=== PATIENT | female | born 1940 | race Caucasian/White ===

== ENCOUNTER → 2016-05-05 | Outpatient (CLI) | payer MEDICARE, OTHER ==
[2016-05-05 13:21] LABS: ALT 57 U/L (9-52); AST 36 U/L (14-36); Alkaline Phosphatase 86 U/L (38-126); Anion Gap 12 mmol/L; Blood Urea Nitrogen 15 mg/dL (7-17); Calcium 10.7 mg/dL (8.4-10.2); Carbon Dioxide 27 mmol/L (22-30); Chloride 104 mmol/L (98-107); Glucose 111 mg/dL (74-99); Non-African American GFR(MDRD) 60 (>60 ml/min/1.73 sqM); Potassium 5.6 mmol/L (3.5-5.1); Sodium 143 mmol/L (137-145); Total Bilirubin 0.7 mg/dL (0.2-1.3); Total Protein 7.4 g/dL (6.3-8.2)
== END | disposition home or self-care (01) ==
LOC: LABWHC1 12:26
PROVIDERS: ATTEND Internal Medicine Endocrinology, Diabetes & Metabolism
DX: E21.0 Primary hyperparathyroidism (principal)
CPT/HCPCS: 36415; 80053; 82306; 83970

== ENCOUNTER → 2016-05-13 | Outpatient (CLI) | payer MEDICARE, OTHER ==
--- NOTE | 2016-05-13 16:43 | US ---
EXAMINATION TYPE: US thyroid st tissue head/neck DATE OF EXAM: 05/13/2016 4:09 PM COMPARISON: None. CLINICAL HISTORY: 75-year-old female primary hyperparathyroidism. TECHNIQUE: Multiple sonographic images of the thyroid gland were obtained. FINDINGS: Right Lobe: 3.2 x 1.6 x x 2.0cm Left Lobe: 3.1 x 1.2 x 1.4cm Isthmus Thickness: 0.4cm There is overall homogeneous glandular parenchyma. NODULES RIGHT: # of nodules measured on right: 1 1. 0.6 x 0.5 x 0.5 cm round spongiform nodule without internal vascularity within the mid pole. No other discrete nodules are seen. IMPRESSION: A single 6 mm spongiform nodule within the right midpole.
== END | disposition home or self-care (01) ==
LOC: RADUSMAIN 15:51
PROVIDERS: ATTEND Internal Medicine Endocrinology, Diabetes & Metabolism
DX: E04.1 Nontoxic single thyroid nodule (principal)
CPT/HCPCS: 76536

== ENCOUNTER → 2016-10-03 | Outpatient (CLI) | payer MEDICARE, OTHER ==
--- NOTE | 2016-10-03 11:22 | MM ---
Reason for exam: clinical finding. Last mammogram was performed 1 year and 1 month ago. History: Patient is postmenopausal. Took hormonal contraceptives for 2 years beginning at age 22. Took estrogen for 4 years beginning at age 46. Physical Findings: Nurse did not find any significant physical abnormalities on exam. MG 3D Diag Mammo W/Cad NADEEM Bilateral CC and MLO view(s) were taken. Prior study comparison: August 19, 2015, bilateral MG 3d screening mammo w/cad. July 14, 2014, bilateral MG screening mammo w CAD. July 04, 2013, bilateral digital screening mammo w/CAD. The breast tissue is heterogeneously dense. This may lower the sensitivity of mammography. Finding: There are typically benign round, diffuse, grouped calcifications in both breasts, greater in the right breast. Asymmetric breast tissue left subareolar region. There is no discrete abnormality. These results were verbally communicated with the patient and result sheet given to the patient on 10/03/16. ASSESSMENT: Benign, BI-RAD 2 RECOMMENDATION: Routine screening mammogram of both breasts in 1 year. Manage patient on a clinical basis.
--- NOTE | 2016-10-03 11:23 | USB ---
Reason for exam: additional evaluation requested from abnormal screening. History: Patient is postmenopausal. Took hormonal contraceptives for 2 years beginning at age 22. Took estrogen for 4 years beginning at age 46. US Breast LT Left breast ultrasound includes all four quadrants, the retroareolar region and axilla. Finding demonstrate a 1.0 x 0.2cm duct estasia at the nipple, and a 0.5 x 0.3 x 0.6cm too small to characterize lesion at 2 o'clock. These results were verbally communicated with the patient and result sheet given to the patient on 10/03/16. ASSESSMENT: Benign, BI-RAD 2 RECOMMENDATION: Routine screening mammogram of both breasts in 1 year.
== END | disposition home or self-care (01) ==
LOC: RADMAMWWP 08:38
PROVIDERS: ATTEND Family Medicine
DX: N64.4 Mastodynia (principal); N63 Unspecified lump in breast
CPT/HCPCS: 76641; G0204; G0279

== ENCOUNTER 2016-12-11 13:41 | Emergency (ER) | payer MEDICARE, OTHER ==
[2016-12-11] MEDS ORDERED: ONDANSETRON 4 MG/2 ML VIAL IVP STA (14:12)
[2016-12-11] MEDS ORDERED: SODIUM CHLORIDE 0.9% 500 ML IV STA (14:12)
[2016-12-11] MEDS ORDERED: RX INFO: IV CONTRAST WAS GIVEN 1 EACH MISC MISCELLANE PRN (14:12)
[2016-12-11] MEDS ORDERED: SODIUM CHLORIDE 0.9% 1,000 ML IV STA (14:12)
[2016-12-11] MEDS ORDERED: HYDROmorphone 1 MG/ML 1 ML SYRINGE IVP STA (14:13)
--- NOTE | 2016-12-11 14:23 | ED ---
General Adult HPI - General Chief complaint: Abdominal Pain Stated complaint: Abd Pain Time Seen by Provider: 12/11/16 13:49 Source: patient, RN notes reviewed, old records reviewed Mode of arrival: ambulatory Limitations: no limitations - History of Present Illness Initial comments: This is a 76-year-old female EL with up dollop pain. Patient has periumbilical abdominal pain. Patient has no prior history of abdominal surgery colonoscopies have been normal. No recent change in medications no fevers mild nausea no vomiting, occasional loose stools no diarrhea. No blood in her stools. - Related Data Home Medications Medication Instructions Recorded Confirmed Metoprolol Tartrate [Metoprolol 50 mg PO BID 11/28/14 12/11/16 Tartrate] Atorvastatin [Lipitor] 40 mg PO MOWEFR 04/21/15 12/11/16 metFORMIN HCL [Glucophage] 500 mg PO AC-LUNCH 04/21/15 12/11/16 Lisinopril [Zestril] 10 mg PO HS 12/11/16 12/11/16 Allergies Allergy/AdvReac Type Severity Reaction Status Date / Time morphine Allergy Itching Verified 12/11/16 14:11 Penicillins Allergy Itching Verified 12/11/16 14:11 Sulfa (Sulfonamide Allergy Itching Verified 12/11/16 14:11 Antibiotics) Review of Systems ROS Statement: Those systems with pertinent positive or pertinent negative responses have been documented in the HPI. ROS Other: All systems not noted in ROS Statement are negative. Past Medical History Past Medical History: Hyperlipidemia, Hypertension Additional Past Medical History / Comment(s): 11/28/14 Pt direct admit for GI bleed and anemia. Other HX: Pt had stress test/echo on 11/26/14 and just turned in her 24 hr DCG today-she is experiencing tiredness and exertional dyspnea, rectal bleed, internal and external hemorrhoids, benign polyps and diverticulosis, constipation, herniated disc in back, stomach ulcer, arrhythmia where heart beats fast and skips, History of Any Multi-Drug Resistant Organisms: None Reported Past Surgical History: Bladder Surgery, Hysterectomy, Tonsillectomy Additional Past Surgical History / Comment(s): colonoscopies and polypectomies- last colonoscopy 2012 was normal, R leg cosmetic vein stripping, bladder repair , bilateral carpal tunnel release, D&C, partial hysterectomy, R heel spur removed. Additional Past Anesthesia/Blood Transfusion Reaction / Comment(s): Pt states she wakes up shakey after surgery. Pt recieved blood after childbirth and had no reaction. Past Psychological History: No Psychological Hx Reported Smoking Status: Never smoker Past Alcohol Use History: Rare Past Drug Use History: None Reported - Past Family History Father Family Medical History: Diabetes Mellitus Mother Family Medical History: No Reported History Additional Family Medical History / Comment(s): Mother is alive and 95 yrs old. Brother(s) Family Medical History: Cancer Additional Family Medical History / Comment(s): Brother had esophageal and colon cancer-is doing well. General Exam Limitations: no limitations General appearance: alert, in no apparent distress Head exam: Present: atraumatic, normocephalic, normal inspection Eye exam: Present: normal appearance, PERRL, EOMI. Absent: scleral icterus, conjunctival injection, periorbital swelling ENT exam: Present: normal exam, mucous membranes moist Neck exam: Present: normal inspection. Absent: tenderness, meningismus, lymphadenopathy Respiratory exam: Present: normal lung sounds bilaterally. Absent: respiratory distress, wheezes, rales, rhonchi, stridor Cardiovascular Exam: Present: regular rate, normal rhythm, normal heart sounds. Absent: systolic murmur, diastolic murmur, rubs, gallop, clicks GI/Abdominal exam: Present: soft, normal bowel sounds. Absent: distended, tenderness, guarding, rebound, rigid Extremities exam: Present: normal inspection, full ROM, normal capillary refill. Absent: tenderness, pedal edema, joint swelling, calf tenderness Back exam: Present: normal inspection Neurological exam: Present: alert, oriented X3, CN II-XII intact Psychiatric exam: Present: normal affect, normal mood Skin exam: Present: warm, dry, intact, normal color. Absent: rash Course Vital Signs 12/11/16 13:46 Temperature 97.9 F Pulse Rate 73 Respiratory 20 Rate Blood Pressure 136/96 O2 Sat by Pulse 97 Oximetry - Reevaluation(s) Reevaluation #1: 12/11/16 16:12 Abdominal pain is resolved Medical Decision Making - Medical Decision Making 76 female ear for evaluation. At this time patient presents for evaluation of nonspecific abdominal pain. Lab work is normal CT abdomen and pelvis is negative. Patient can be discharged home - Lab Data Result diagrams: 12/11/16 14:35 08/13/17 14:35 Lab Results 12/11/16 12/11/16 12/11/16 Range/Units 14:35 14:35 14:35 WBC 6.9 (3.8-10.6) k/uL RBC 4.43 (3.80-5.40) m/uL Hgb 13.1 (11.4-16.0) gm/dL Hct 39.6 (34.0-46.0) % MCV 89.5 (80.0-100.0) fL MCH 29.5 (25.0-35.0) pg MCHC 33.0 (31.0-37.0) g/dL RDW 13.5 (11.5-15.5) % Plt Count 246 (150-450) k/uL Neutrophils % 67 % Lymphocytes % 22 % Monocytes % 5 % Eosinophils % 3 % Basophils % 1 % Neutrophils # 4.7 (1.3-7.7) k/uL Lymphocytes # 1.5 (1.0-4.8) k/uL Monocytes # 0.4 (0-1.0) k/uL Eosinophils # 0.2 (0-0.7) k/uL Basophils # 0.0 (0-0.2) k/uL Sodium 140 (137-145) mmol/L Potassium 4.5 (3.5-5.1) mmol/L Chloride 105 (98-107) mmol/L Carbon Dioxide 23 (22-30) mmol/L Anion Gap 12 mmol/L BUN 16 (7-17) mg/dL Creatinine 0.90 (0.52-1.04) mg/dL Est GFR (MDRD) Af Amer >60 (>60 ml/min/1.73 sqM) Est GFR (MDRD) Non-Af >60 (>60 ml/min/1.73 sqM) Glucose 101 H (74-99) mg/dL Plasma Lactic Acid Tanner (0.7-2.0) mmol/L Calcium 9.8 (8.4-10.2) mg/dL Total Bilirubin 0.9 (0.2-1.3) mg/dL AST 72 H (14-36) U/L ALT 62 H (9-52) U/L Alkaline Phosphatase 120 (38-126) U/L Total Creatine Kinase 209 H (30-135) U/L CK-MB (CK-2) 2.0 (0.0-2.4) ng/mL CK-MB (CK-2) Rel Index 1.0 Troponin I <0.012 (0.000-0.034) ng/mL Total Protein 7.0 (6.3-8.2) g/dL Albumin 4.4 (3.5-5.0) g/dL Amylase 40 (30-110) U/L Lipase 270 (23-300) U/L 12/11/16 Range/Units 14:35 WBC (3.8-10.6) k/uL RBC (3.80-5.40) m/uL Hgb (11.4-16.0) gm/dL Hct (34.0-46.0) % MCV (80.0-100.0) fL MCH (25.0-35.0) pg MCHC (31.0-37.0) g/dL RDW (11.5-15.5) % Plt Count (150-450) k/uL Neutrophils % % Lymphocytes % % Monocytes % % Eosinophils % % Basophils % % Neutrophils # (1.3-7.7) k/uL Lymphocytes # (1.0-4.8) k/uL Monocytes # (0-1.0) k/uL Eosinophils # (0-0.7) k/uL Basophils # (0-0.2) k/uL Sodium (137-145) mmol/L Potassium (3.5-5.1) mmol/L Chloride (98-107) mmol/L Carbon Dioxide (22-30) mmol/L Anion Gap mmol/L BUN (7-17) mg/dL Creatinine (0.52-1.04) mg/dL Est GFR (MDRD) Af Amer (>60 ml/min/1.73 sqM) Est GFR (MDRD) Non-Af (>60 ml/min/1.73 sqM) Glucose (74-99) mg/dL Plasma Lactic Acid Tanner 1.4 (0.7-2.0) mmol/L Calcium (8.4-10.2) mg/dL Total Bilirubin (0.2-1.3) mg/dL AST (14-36) U/L ALT (9-52) U/L Alkaline Phosphatase (38-126) U/L Total Creatine Kinase (30-135) U/L CK-MB (CK-2) (0.0-2.4) ng/mL CK-MB (CK-2) Rel Index Troponin I (0.000-0.034) ng/mL Total Protein (6.3-8.2) g/dL Albumin (3.5-5.0) g/dL Amylase (30-110) U/L Lipase (23-300) U/L - Radiology Data Radiology results: report reviewed (CT pelvis is negative), image reviewed Disposition Clinical Impression: Abdominal pain Disposition: HOME SELF-CARE Condition: Good Instructions: Abdominal Pain (ED) Referrals: Nayeli Easley III, MD [Primary Care Provider] - 1-2 days
[2016-12-11 14:52] LABS: Basophils % (A) 1 %; CH 28.7; CHCM 32.3; Eosinophils # (A) 0.2 k/uL (0-0.7); Eosinophils % (A) 3 %; HCT 39.6 % (34.0-46.0); HDW 2.87; HGB 13.1 gm/dL (11.4-16.0); Luc # (Auto) 0.12; Luc % (Auto) 2; Lymphocytes # (A) 1.5 k/uL (1.0-4.8); Lymphocytes % (A) 22 %; MCH 29.5 pg (25.0-35.0); MCV 89.5 fL (80.0-100.0); Mean Platelet Volume 7.9; Monocytes # (A) 0.4 k/uL (0-1.0); Monocytes % (A) 5 %; Neutrophils # (A) 4.7 k/uL (1.3-7.7); Neutrophils % (A) 67 %; RBC 4.43 m/uL (3.80-5.40); RDW 13.5 % (11.5-15.5); WBC 6.9 k/uL (3.8-10.6); WBC (Perox) 7.09
[2016-12-11 15:04] LABS: ALT 62 U/L (9-52); AST 72 U/L (14-36); Alkaline Phosphatase 120 U/L (38-126); Amylase 40 U/L (30-110); Anion Gap 12 mmol/L; Blood Urea Nitrogen 16 mg/dL (7-17); Calcium 9.8 mg/dL (8.4-10.2); Carbon Dioxide 23 mmol/L (22-30); Chloride 105 mmol/L (98-107); Glucose 101 mg/dL (74-99); Non-African American GFR(MDRD) >60 (>60 ml/min/1.73 sqM); Potassium 4.5 mmol/L (3.5-5.1); Sodium 140 mmol/L (137-145); Total Bilirubin 0.9 mg/dL (0.2-1.3)
[2016-12-11 15:05] LABS: Creatine Kinase 209 U/L (30-135)
[2016-12-11 15:18] LABS: Troponin I <0.012 ng/mL (0.000-0.034)
--- NOTE | 2016-12-11 15:50 | CT ---
EXAMINATION TYPE: CT abdomen pelvis w con DATE OF EXAM: 12/11/2016 COMPARISON: NONE HISTORY: Upper abdominal pain. CT DLP: 1301.60 mGycm Automated exposure control for dose reduction was used. TECHNIQUE: Helical acquisition of images was performed from the lung bases through the pelvis. CONTRAST: Performed without Oral Contrast and with IV Contrast, patient injected with 100 mL of Omnipaque 350. FINDINGS: LUNG BASES: No significant abnormality is appreciated. There is a moderate-sized hiatal hernia which is unchanged. LIVER/GB: Cholelithiasis is noted. The liver is unremarkable. PANCREAS: No significant abnormality is seen. SPLEEN: No significant abnormality is seen. ADRENALS: No significant abnormality is seen. KIDNEYS: A 9 mm nonobstructing calculus is again noted in the left renal inferior pole calyx. FREE AIR: No free air is visualized. RETROPERITONEAL ADENOPATHY: None visualized REPRODUCTIVE ORGANS: No significant abnormality is seen URINARY BLADDER: No significant abnormality is seen. PELVIC ADENOPATHY: None visualized. OSSEOUS STRUCTURES: There is grade 1 anterolisthesis of L3 on L4 and L4-L5. BOWEL: Diverticulosis is noted in the descending and sigmoid colon. There is no evidence of acute di verticulitis. OTHER: None IMPRESSION: 1. A LARGE LIKELY SLIDING-TYPE HIATAL HERNIA IS AGAIN NOTED. 2. NONOBSTRUCTING LEFT-SIDED NEPHROLITHIASIS. 3. CHOLELITHIASIS.
[2016-12-11 16:56] VITALS: BP 132/78; PULSE 70; RESP 16; TEMP 98.2
== END 2016-12-11 16:56 | disposition home or self-care (01) ==
LOC: EC 13:41
DX: R10.33 Periumbilical pain (principal); R11.0 Nausea; E78.5 Hyperlipidemia, unspecified; I10 Essential (primary) hypertension; Z79.84 Long term (current) use of oral hypoglycemic drugs; Z79.899 Other long term (current) drug therapy; Z88.0 Allergy status to penicillin; Z88.2 Allergy status to sulfonamides; Z88.5 Allergy status to narcotic agent; Z80.0 Family history of malignant neoplasm of digestive organs
CPT/HCPCS: 36415; 80053; 82150; 82550; 82553; 83605; 83690; 84484; 85025; 74177; 99284; 96374; 96375; 96361; J2405; J1170; Q9967

== ENCOUNTER → 2017-08-23 | Outpatient (CLI) | payer MEDICARE, OTHER ==
[2017-08-23 12:55] LABS: Anisocytosis Slight; Basophils # (A) 0.1 k/uL (0-0.2); Basophils % (A) 1 %; Eosinophils # (A) 0.2 k/uL (0-0.7); Eosinophils % (A) 3 %; HCT 36.6 % (34.0-46.0); HGB 10.7 gm/dL (11.4-16.0); Hypochromasia Marked; Lymphocytes # (A) 1.7 k/uL (1.0-4.8); Lymphocytes % (A) 33 %; MCH 22.4 pg (25.0-35.0); MCHC 29.3 g/dL (31.0-37.0); MCV 76.3 fL (80.0-100.0); Mean Platelet Volume 8.6; Microcytosis Slight; Monocytes # (A) 0.4 k/uL (0-1.0); Monocytes % (A) 7 %; Neutrophils # (A) 2.8 k/uL (1.3-7.7); Neutrophils % (A) 54 %; Platelet Count 296 k/uL (150-450); RDW 16.2 % (11.5-15.5); WBC 5.2 k/uL (3.8-10.6)
[2017-08-23 13:14] LABS: Albumin 4.5 g/dL (3.5-5.0); Potassium 4.8 mmol/L (3.5-5.1); Total Bilirubin 0.4 mg/dL (0.2-1.3); Total Protein 7.2 g/dL (6.3-8.2)
== END | disposition home or self-care (01) ==
LOC: LABWHC1 11:40
PROVIDERS: ATTEND Nurse Practitioner Adult Health
DX: I10 Essential (primary) hypertension (principal); E21.5 Disorder of parathyroid gland, unspecified; E78.5 Hyperlipidemia, unspecified; R73.9 Hyperglycemia, unspecified
CPT/HCPCS: 36415; 80053; 80061; 83970; 85025

== ENCOUNTER → 2017-09-28 | Outpatient (CLI) | payer MEDICARE, OTHER ==
--- NOTE | 2017-09-29 08:02 | US ---
EXAMINATION TYPE: US thyroid st tissue head/neck DATE OF EXAM: 09/28/2017 COMPARISON: Prior thyroid ultrasound May 13, 2016 CLINICAL HISTORY: E21.3 Hyperparathyroid,R53.83 Fatigue. Fatigue, hyperparathyroidism, left parathyro idectomy 2017 GLAND SIZE: Right Lobe: 2.8 x 1.3 x 1.7 cm Left Lobe: 3.5 x 1.4 x 1.5 cm Isthmus Thickness: 0.4 cm NODULES RIGHT: # of nodules measured on right: 1 1. 0.8 X 0.5 x 0.7 cm mixed nodule at the mid pole with well-defined margins; . This nodule is wid er than tall and shows intranodular vascularity. Prior size: 0.6 x 0.5 x 0.5 cm LEFT: # of nodules measured on left: 0 ISTHMUS: # of nodules measured in the isthmus: 0 Bilateral neck scanned, no evidence of lymphadenopathy. Small size heterogeneous thyroid is redemonstrated. There is stable 8 mm mixed nodule right thyroid l obe. There are scattered tinier subcentimeter nodules redemonstrated bilaterally. IMPRESSION: Small size heterogeneous thyroid without significant interval change. No new greater than 1 cm nodule s identified.
== END | disposition home or self-care (01) ==
LOC: RADUSWWP 16:19
PROVIDERS: ATTEND Family Medicine
DX: E04.2 Nontoxic multinodular goiter (principal); E21.3 Hyperparathyroidism, unspecified; R53.83 Other fatigue
CPT/HCPCS: 76536

== ENCOUNTER → 2017-11-06 | Outpatient (CLI) | payer MEDICARE, OTHER ==
--- NOTE | 2017-11-07 14:28 | MM ---
Reason for exam: screening (asymptomatic). Last mammogram was performed 1 year and 1 month ago. History: Patient is postmenopausal. Took hormonal contraceptives for 2 years beginning at age 22. Took estrogen for 4 years beginning at age 46. Physical Findings: A clinical breast exam by your physician is recommended on an annual basis and results should be correlated with mammographic findings. MG 3D Screening Mammo W/Cad Bilateral CC and MLO view(s) were taken. Prior study comparison: October 03, 2016, bilateral MG 3d diag mammo w/cad NADEEM. August 19, 2015, bilateral MG 3d screening mammo w/cad. The breast tissue is heterogeneously dense. This may lower the sensitivity of mammography. Finding: There are typically benign round, diffuse/scattered and grouped calcifications in both breasts, greater in the right breast. Grouped indeterminate calcifications in the right upper outer quadrant middle depth. New finding and increase in number of calcifications since October 03, 2016. ASSESSMENT: Incomplete: need additional imaging evaluation, BI-RAD 0 RECOMMENDATION: Special view mammogram of the right breast. [facility] will attempt to contact patient to return for supplemental views.
== END | disposition home or self-care (01) ==
LOC: RADMAMWWP 15:30
PROVIDERS: ATTEND Family Medicine
DX: Z12.31 Encounter for screening mammogram for malignant neoplasm of breast (principal)
CPT/HCPCS: 77063; 77067

== ENCOUNTER → 2017-11-09 | Outpatient (CLI) | payer MEDICARE, OTHER ==
--- NOTE | 2017-11-09 14:24 | MM ---
Reason for exam: screening (asymptomatic). Last mammogram was performed less than 1 month ago. History: Patient is postmenopausal. Took hormonal contraceptives for 2 years beginning at age 22. Took estrogen for 4 years beginning at age 46. Physical Findings: A clinical breast exam by your physician is recommended on an annual basis and results should be correlated with mammographic findings. MG 3D Work Up W/Cad RT CC with magnification, LM with magnification, and LM view(s) were taken of the right breast. Prior study comparison: November 06, 2017, bilateral MG 3d screening mammo w/cad. October 03, 2016, bilateral MG 3d diag mammo w/cad NADEEM. Finding: There are intermediate concern, suspicious coarse heterogeneous calcifications in the upper outer quadrant, middle posterior position of the right breast. These results were verbally communicated with the patient and result sheet given to the patient on 11/09/17. ASSESSMENT: Suspicious, BI-RAD 4 RECOMMENDATION: Stereotactic core biopsy of right breast. Called Dr. Martinez with mammographic findings and has scheduled an appointment for the patient for 12/06/17 at 3:[address] Garcia. Biopsy scheduled for 11/16/17 at 10:00. PRELIMINARY REPORT CALLED AND FAXED TO DR. GARCIA ON 11/09/17. [facility]
== END | disposition home or self-care (01) ==
LOC: RADMAMWWP 06:55
PROVIDERS: ATTEND Family Medicine
DX: R92.8 Other abnormal and inconclusive findings on diagnostic imaging of breast (principal)
CPT/HCPCS: 77065; G0279; 77061

== ENCOUNTER → 2017-11-16 | Day surgery (SDC) | payer MEDICARE, OTHER ==
[2017-11-16 09:22] VITALS: PULSE 60; RESP 16; TEMP 97.9; BMI 30.2
[2017-11-16 11:39] VITALS: BP 127/76
--- NOTE | 2017-11-16 14:03 | MM ---
EXAMINATION TYPE: MG stereo VAD BX RT DATE OF EXAM: 11/16/2017 COMPARISON: 11/09/2017 CLINICAL HISTORY: 3 mm group of upper outer quadrant of the right breast calcifications and mid to posterior depth for which stereotactic guided biopsy was recommended. TECHNIQUE: Stereotactic guided core biopsy of right breast. FINDINGS: The procedure of stereotactic guided core biopsy was explained to the patient. Benefits, alternatives, and risks were discussed. An informed consent was then obtained. Preprocedural timeout was performed. The shortness pathway for biopsy was chosen. Shortness pathway was lateral to medial approach. . 10 cc of lidocaine was utilized to anesthetize the skin surface and subcutaneous tissues. The needle was advanced to the appropriate depth and prefire images were obtained. 10 cc of lidocaine with epinephrine was utilized to anesthetize the site of biopsy after fire. Subsequently a vacuum assisted biopsy gun was used to obtain 7 core samples. The patient tolerated the procedure well without any immediate complication. The patient was kept in the radiology department for short stay after the procedure and then discharged home in stable condition. Targeted calcifications are identified in specimen mammogram. Post biopsy mammogram shows the biopsy marker to appear in satisfactory position relative to the targeted area of concern on the preprocedure images. IMPRESSION: SUCCESSFUL, UNCOMPLICATED STEREOTACTIC GUIDED CORE BIOPSY OF A 3 MM GROUP OF CALCIFICATIONS IN THE UPPER OUTER QUADRANT OF THE RIGHT BREAST AT MID TO POSTERIOR DEPTH, FULL PATHOLOGY RESULTS TO FOLLOW. Pathology Results: Benign BREAST, RIGHT, STEREOTACTIC CORE BIOPSY: Fibrocystic changes including fibroadenomatoid hyperplasia with hyalinization and calcifications. Recommendation Follow up mammogram of the right breast in 6 months. ANGELIA
== END | disposition home or self-care (01) ==
LOC: RADMAMWWP 08:54
PROVIDERS: ATTEND Surgery
DX: N60.11 Diffuse cystic mastopathy of right breast (principal); N62 Hypertrophy of breast; Z88.0 Allergy status to penicillin; Z88.2 Allergy status to sulfonamides; Z88.5 Allergy status to narcotic agent
CPT/HCPCS: 88305; 19081; A4648; J2001

== ENCOUNTER → 2017-12-25 | Outpatient (CLI) | payer MEDICARE, OTHER ==
[2017-12-25 16:16] LABS: Anisocytosis Slight; Basophils % (A) 1 %; Eosinophils # (A) 0.2 k/uL (0-0.7); Eosinophils % (A) 4 %; HCT 40.6 % (34.0-46.0); HGB 11.9 gm/dL (11.4-16.0); Hypochromasia Marked; Lymphocytes # (A) 1.6 k/uL (1.0-4.8); Lymphocytes % (A) 30 %; MCH 25.2 pg (25.0-35.0); MCHC 29.4 g/dL (31.0-37.0); MCV 85.8 fL (80.0-100.0); Mean Platelet Volume 7.9; Monocytes # (A) 0.3 k/uL (0-1.0); Monocytes % (A) 6 %; Neutrophils # (A) 3.1 k/uL (1.3-7.7); Neutrophils % (A) 58 %; Platelet Count 234 k/uL (150-450); RBC 4.74 m/uL (3.80-5.40); RDW 19.1 % (11.5-15.5); WBC 5.4 k/uL (3.8-10.6)
[2017-12-25 16:38] LABS: Calcium 9.8 mg/dL (8.4-10.2); Potassium 4.7 mmol/L (3.5-5.1)
[2017-12-26 02:33] LABS: Parathyroid Hormone Intact 85.3 pg/mL (14.0-72.0)
--- NOTE | 2017-12-26 05:26 | US ---
EXAMINATION TYPE: US kidneys/renal and bladder DATE OF EXAM: 12/25/2017 COMPARISON: CT 12/11/2016 CLINICAL HISTORY: 77-year-old female N20.0 Calculus of kidney,R10.9 Lt Flank Pain. TECHNIQUE: Multiple sonographic images of the kidneys and bladder are obtained. FINDINGS: EXAM MEASUREMENTS: Right Kidney: 9.9 x 3.9 x 4.0 cm Left Kidney: 10.7 x 4.2 x 4.0 cm Right Kidney: No hydronephrosis. 2 simple cortical cysts are present, one in the midpole and one in t he lower pole, largest measuring 1.1 x 1.1 x 1.2 cm Left Kidney: No hydronephrosis. Echogenic shadowing focus visualized lower pole measuring 1.8 cm Bladder: Incomplete distention limits its evaluation. Bilateral Jets seen: No IMPRESSION: 1. No hydronephrosis. 2. A 1.8 cm nonobstructive left lower pole renal calculus.
[2017-12-26 05:46] LABS: Hemoglobin A1C 5.5 % (4.0-6.0)
== END | disposition home or self-care (01) ==
LOC: RADUSWWP 15:24
PROVIDERS: ATTEND Family Medicine
DX: N20.0 Calculus of kidney (principal); N28.1 Cyst of kidney, acquired; E21.3 Hyperparathyroidism, unspecified; I10 Essential (primary) hypertension; R73.01 Impaired fasting glucose; D50.9 Iron deficiency anemia, unspecified
CPT/HCPCS: 36415; 76770; 80048; 82607; 83036; 83970; 85025

== ENCOUNTER → 2018-06-08 | Outpatient (CLI) | payer MEDICARE, OTHER ==
--- NOTE | 2018-06-08 11:48 | MM ---
Reason for exam: follow-up at short interval from prior study. Last mammogram was performed 7 months ago. History: Patient is postmenopausal. Benign MG stereo VAD BX RT of the right breast, November 16, 2017. Took hormonal contraceptives for 2 years beginning at age 22. Took estrogen for 4 years beginning at age 46. Physical Findings: Nurse did not find any significant physical abnormalities on exam. MG 3D Diag Mammo W/Cad RT CC and MLO view(s) were taken of the right breast. Prior study comparison: November 09, 2017, right breast MG 3d work up w/cad RT. November 06, 2017, bilateral MG 3d screening mammo w/cad. The breast tissue is heterogeneously dense. This may lower the sensitivity of mammography. Benign appearing bilateral calcifications. No suspicious abnormality. Left upper outer quadrant biopsy marker noted. No new suspicious calcifications near the biopsy site. These results were verbally communicated with the patient and result sheet given to the patient on 06/08/18. ASSESSMENT: Benign, BI-RAD 2 RECOMMENDATION: Return to routine screening mammogram schedule for both breasts. Back on schedule.
== END | disposition home or self-care (01) ==
LOC: RADMAMWWP 10:44
PROVIDERS: ATTEND Surgery
DX: R92.8 Other abnormal and inconclusive findings on diagnostic imaging of breast (principal)
CPT/HCPCS: 77065; G0279; 77061

== ENCOUNTER → 2018-11-14 | Outpatient (CLI) | payer MEDICARE, OTHER ==
--- NOTE | 2018-11-15 14:55 | MM ---
Reason for exam: screening (asymptomatic). Last mammogram was performed 5 months ago. History: Patient is postmenopausal. Benign MG stereo VAD BX RT of the right breast, November 16, 2017. Took hormonal contraceptives for 2 years beginning at age 22. Took estrogen for 4 years beginning at age 46. Physical Findings: A clinical breast exam by your physician is recommended on an annual basis and results should be correlated with mammographic findings. MG 3D Screening Mammo W/Cad Bilateral CC and MLO view(s) were taken. Prior study comparison: June 08, 2018, right breast MG 3d diag mammo w/cad RT. November 09, 2017, right breast MG 3d work up w/cad RT. The breast tissue is heterogeneously dense. This may lower the sensitivity of mammography. Previous mammotome biopsy in the right breast. ASSESSMENT: Benign, BI-RAD 2 RECOMMENDATION: Routine screening mammogram of both breasts in 1 year. Manage patient on a clinical basis.
== END | disposition home or self-care (01) ==
LOC: RADMAMWWP 15:28
PROVIDERS: ATTEND Family Medicine
DX: Z12.31 Encounter for screening mammogram for malignant neoplasm of breast (principal)
CPT/HCPCS: 77063; 77067

== ENCOUNTER → 2018-12-26 | Outpatient (CLI) | payer MEDICARE, OTHER ==
[2018-12-26 10:53] LABS: Basophils # (A) 0.1 k/uL (0-0.2); Basophils % (A) 1 %; Eosinophils # (A) 0.2 k/uL (0-0.7); Eosinophils % (A) 4 %; HCT 41.9 % (34.0-46.0); HGB 13.3 gm/dL (11.4-16.0); Lymphocytes # (A) 1.4 k/uL (1.0-4.8); Lymphocytes % (A) 28 %; MCH 29.2 pg (25.0-35.0); MCHC 31.8 g/dL (31.0-37.0); MCV 91.7 fL (80.0-100.0); Mean Platelet Volume 8.7; Monocytes # (A) 0.4 k/uL (0-1.0); Monocytes % (A) 7 %; Neutrophils # (A) 2.9 k/uL (1.3-7.7); Neutrophils % (A) 59 %; Platelet Count 244 k/uL (150-450); RBC 4.57 m/uL (3.80-5.40); RDW 15.3 % (11.5-15.5)
[2018-12-26 16:01] LABS: African American GFR (CKD) 63.4 (60.0-200.0); Albumin 4.7 g/dL (3.80-4.90); Albumin/Globulin Ratio 2.76 (1.60-3.17); Anion Gap 7.1 mmol/L (4.00-12.00); Calcium 9.9 mg/dL (8.7-10.3); Carbon Dioxide 28.9 mmol/L (21.6-31.8); Chol/HDL Ratio 2.31; Globulin 1.7 g/dL (1.6-3.3); LDL Cholesterol,Calculated 75.4 mg/dL (0.0-131.0); Potassium 4.8 mmol/L (3.5-5.5); Total Bilirubin 0.6 mg/dL (0.2-1.2); Total Protein 6.4 g/dL (6.2-8.2); VLDL Calculation 25.6 mg/dL (5.00-40.00)
[2018-12-26 17:41] LABS: Hemoglobin A1C 5.6 % (4.0-6.0)
== END | disposition home or self-care (01) ==
LOC: LABWHC1 09:57
PROVIDERS: ATTEND Family Medicine
DX: E21.3 Hyperparathyroidism, unspecified (principal); R73.01 Impaired fasting glucose; I10 Essential (primary) hypertension; E78.5 Hyperlipidemia, unspecified; R53.83 Other fatigue
CPT/HCPCS: 36415; 80053; 80061; 82607; 83036; 83970; 84443; 85025

== ENCOUNTER → 2019-01-03 | Outpatient (CLI) | payer MEDICARE, OTHER ==
--- NOTE | 2019-01-03 14:02 | BD ---
EXAMINATION TYPE: Axial Bone Density DATE OF EXAM: 01/03/2019 COMPARISON: 11.05.2001 CLINICAL HISTORY: 78 YR OLD FEMALE....ICD-10 CODE: Z78.0 POST MENOPAUSAL Height: 61 Weight: 161 FRAX RISK QUESTIONS: Secondary Osteoporosis: YES 2. Hyperthyroidism: YES RISK FACTORS HISTORY OF: History of Wrist Fracture: LT WRIST A CHILD Postmenopausal woman: YES AT AGE 45-46 Take estrogen and/or progesterone medications: TOOK FOR 6 MOS ONLY IN PAST Hyperparathyroidism: PARATHYROID REMOVAL, YES, MEDICATIONS: Additional Medications: BP MEDS, REFLUX MEDS PRN, STATIN FOR CHOLESTEROL, Additional History: HYPERTENSION, HYPERPARATHYROIDISM, CHOLESTEROL, EXAM MEASUREMENTS: Bone mineral densitometry was performed using the [employer]. Bone mineral density as measured about the Lumbar spine is: ----- L1-L4(G/cm2): 1.329 T Score Values are as follows: ----- L1: 1.9 ----- L2: 1.1 ----- L3: 1.6 ----- L4: 0.4 ----- L1-L4: 1.2 Bone mineral density has: Decreased -6.6% since study of: 11.05.2001 Bone mineral density about the R hip (g/cm2): 0.869 Bone mineral density about the L hip (g/cm2): 0.810 T Score values are as follows: -----R Neck: -2.4 -----L Neck: -2.2 -----R Total: -1.1 -----L Total: -1.6 Bone mineral density has: Decreased -18.9% since study of: 11.05.2001 FRAX%s: THERE IS A 15.8% CHANCE FOR A MAJOR OSTEOPOROTIC FX AND A 4.8% FOR HIP FX....PROBABILITY FO R FX IN 10 YRS TIME IMPRESSION: Osteopenia (T Score between -2.5 and -1). Values to approach osteoporosis with regards to the right f emoral neck. There is slightly increased risk of fracture and the patient may be considered for treatment. Re-Screen 2-5 years. NOTE: T-SCORE=SD OF THE YOUNG ADULT MEAN.
== END | disposition home or self-care (01) ==
LOC: RADBDWWP 13:13
PROVIDERS: ATTEND Family Medicine
DX: M85.88 Other specified disorders of bone density and structure, other site (principal); Z78.0 Asymptomatic menopausal state
CPT/HCPCS: 77080

== ENCOUNTER → 2019-12-23 | Outpatient (CLI) | payer MEDICARE, OTHER ==
--- NOTE | 2019-12-24 11:29 | MM ---
Reason for exam: screening (asymptomatic). Last mammogram was performed 1 year and 1 month ago. History: Patient is postmenopausal. Benign MG stereo VAD BX RT of the right breast, November 16, 2017. Took hormonal contraceptives for 2 years beginning at age 22. Took estrogen for 4 years beginning at age 46. Physical Findings: A clinical breast exam by your physician is recommended on an annual basis and results should be correlated with mammographic findings. MG 3D Screening Mammo W/Cad Bilateral CC and MLO view(s) were taken. Prior study comparison: November 14, 2018, bilateral MG 3d screening mammo w/cad. June 08, 2018, right breast MG 3d diag mammo w/cad RT. The breast tissue is heterogeneously dense. This may lower the sensitivity of mammography. There are benign appearing round calcifications bilaterally. Previous mammotome biopsy in the right breast. There is chronic nodularity in the right breast inferiorly. There is no discrete abnormality. ASSESSMENT: Benign, BI-RAD 2 RECOMMENDATION: Routine screening mammogram of both breasts in 1 year.
== END | disposition home or self-care (01) ==
LOC: RADMAMWWP 13:45
PROVIDERS: ATTEND Family Medicine
DX: Z12.31 Encounter for screening mammogram for malignant neoplasm of breast (principal)
CPT/HCPCS: 77063; 77067

== ENCOUNTER → 2020-11-18 | Outpatient (CLI) | payer MEDICARE, OTHER ==
[2020-11-19 03:43] LABS: African American GFR (CKD) 56.1 (60.0-200.0); Albumin 4.8 g/dL (3.80-4.90); Albumin/Globulin Ratio 1.92 (1.60-3.17); Anion Gap 14.2 mmol/L (4.00-12.00); BUN/Creat Ratio 21.82 Ratio (12.00-20.00); Carbon Dioxide 23.8 mmol/L (21.6-31.8); Globulin 2.5 g/dL (1.6-3.3); Non-African American GFR(CKD) 48.4 (60.0-200.0); Total Bilirubin 0.5 mg/dL (0.3-1.2); Total Protein 7.3 g/dL (6.2-8.2)
== END | disposition home or self-care (01) ==
LOC: LABWHC1 10:33
PROVIDERS: ATTEND Internal Medicine Endocrinology, Diabetes & Metabolism
DX: E21.0 Primary hyperparathyroidism (principal)
CPT/HCPCS: 36415; 80053; 82306; 83970

== ENCOUNTER → 2021-03-03 | Outpatient (CLI) | payer MEDICARE, OTHER ==
--- NOTE | 2021-03-05 14:41 | MM ---
Reason for exam: screening (asymptomatic). Last mammogram was performed 1 year and 2 months ago. History: Patient is postmenopausal. Benign MG stereo VAD BX RT of the right breast, November 16, 2017. Took hormonal contraceptives for 2 years beginning at age 22. Took estrogen for 4 years beginning at age 46. Physical Findings: A clinical breast exam by your physician is recommended on an annual basis and results should be correlated with mammographic findings. MG 3D Screening Mammo W/Cad Bilateral CC and MLO view(s) were taken. Prior study comparison: December 23, 2019, bilateral MG 3d screening mammo w/cad. November 14, 2018, bilateral MG 3d screening mammo w/cad. The breast tissue is heterogeneously dense. This may lower the sensitivity of mammography. Previous mammotome biopsy in the right breast. Stable subareolar focal asymmetry on both sides. No significant changes when compared with prior studies. ASSESSMENT: Benign, BI-RAD 2 RECOMMENDATION: Routine screening mammogram of both breasts in 1 year.
== END | disposition home or self-care (01) ==
LOC: RADMAMWWP 16:28
PROVIDERS: ATTEND Family Medicine
DX: Z12.31 Encounter for screening mammogram for malignant neoplasm of breast (principal); Z78.0 Asymptomatic menopausal state
CPT/HCPCS: 77063; 77067

== ENCOUNTER → 2021-03-26 | Outpatient (CLI) | payer MEDICARE, OTHER ==
--- NOTE | 2021-03-26 11:19 | US ---
EXAMINATION TYPE: US gallbladder DATE OF EXAM: 03/26/2021 COMPARISON: CT abdomen and pelvis December 11, 2016 CLINICAL HISTORY: R10.13 Epigastric pain; R68.81 satiety; K44.9 hernia; R10.11. EXAM MEASUREMENTS: Liver Length: 15.2 cm Gallbladder Wall: 0.3 cm CBD: 0.4 cm Right Kidney: 9.2x5.2x4.4 cm Pancreas: wnl Liver: wnl Gallbladder: Multiple small stones as well as 0.9cm Evidence for sonographic Green's sign: No CBD: wnl Right Kidney: Inf cyst 1.3x1.2x1.2cm Visualized pancreas unremarkable. Visualized liver appears within normal limits. Gallbladder shows a few mobile small shadowing stones. No pericholecystic fluid or abnormal gallbladder wall thickening. Simple appearing 1.2 cm thin-walled cyst exophytically from the right kidney incidentally seen corres stephen to CT axial image 34. No right-sided hydronephrosis. IMPRESSION: Small Gallstones redemonstrated without secondary ultrasound evidence for acute cholecyst itis
== END | disposition home or self-care (01) ==
LOC: RADUSWWP 10:40
PROVIDERS: ATTEND Family Medicine
DX: K80.20 Calculus of gallbladder without cholecystitis without obstruction (principal)
CPT/HCPCS: 76705

== ENCOUNTER → 2021-07-16 | Outpatient (CLI) | payer MEDICARE, OTHER ==
[2021-07-16 18:16] LABS: Basophils # (A) 0.06 X 10*3/uL (0.00-0.10); Basophils % (A) 1.1 %; Eosinophils # (A) 0.23 X 10*3/uL (0.04-0.35); Eosinophils % (A) 4.2 %; HCT 38.9 % (37.2-46.3); Immature Grans, Automated 0.2 %; Lymphocytes # (A) 1.46 X 10*3/uL (0.90-5.00); Lymphocytes % (A) 26.7 %; MCHC 28.3 g/dL (32.0-37.0); MCV 81.2 fL (80.0-97.0); Mean Platelet Volume 12.1 fL (9.5-12.2); Monocytes # (A) 0.44 X 10*3/uL (0.20-1.00); Monocytes % (A) 8.1 %; NRBC Per 100 WBC 0 /100 WBCS (0.0-0.0); Neutrophils # (A) 3.26 X 10*3/uL (1.80-7.70); Neutrophils % (A) 59.7 %; Platelet Count 292 X 10*3/uL (140-440); RBC 4.79 X 10*6/uL (4.10-5.20); RDW 15.7 % (11.5-14.5); WBC 5.46 X 10*3/uL (4.50-10.00)
[2021-07-16 20:21] LABS: ALT 39 U/L (8-44); AST 35 U/L (13-35); African American GFR (CKD) 61.7 (60.0-200.0); Albumin 4.6 g/dL (3.8-4.9); Albumin/Globulin Ratio 1.59 (1.60-3.17); Alkaline Phosphatase 92 U/L (41-126); BUN/Creat Ratio 13.27 Ratio (12.00-20.00); Blood Urea Nitrogen 13.4 mg/dL (9.0-27.0); Carbon Dioxide 21.1 mmol/L (20.0-27.5); Chloride 104 mmol/L (96-109); Chol/HDL Ratio 2.58 Ratio; Globulin 2.9 g/dL (1.6-3.3); Glucose 120 mg/dL (70-110); LDL Cholesterol,Calculated 77.2 mg/dL (0.0-131.0); Non-African American GFR(CKD) 53.3 (60.0-200.0); Sodium 139 mmol/L (135-145); Total Protein 7.4 g/dL (6.2-8.2)
== END | disposition home or self-care (01) ==
LOC: LABWHC1 11:58
PROVIDERS: ATTEND Internal Medicine Cardiovascular Disease
DX: I10 Essential (primary) hypertension (principal); E78.5 Hyperlipidemia, unspecified
CPT/HCPCS: 36415; 80053; 80061; 85025

== ENCOUNTER 2021-12-21 19:54 | Observation (INO) | payer MEDICARE, OTHER ==
[2021-12-21 20:36] LABS: Anisocytosis Slight; Basophils % (A) 1 %; Eosinophils # (A) 0.2 k/uL (0-0.7); Eosinophils % (A) 4 %; HCT 41.2 % (34.0-46.0); HGB 13.1 gm/dL (11.4-16.0); Hypochromasia Slight; Lymphocytes # (A) 1.5 k/uL (1.0-4.8); Lymphocytes % (A) 28 %; MCH 27.7 pg (25.0-35.0); MCHC 31.9 g/dL (31.0-37.0); MCV 86.7 fL (80.0-100.0); Monocytes # (A) 0.4 k/uL (0-1.0); Monocytes % (A) 8 %; Neutrophils # (A) 3.1 k/uL (1.3-7.7); Neutrophils % (A) 58 %; Platelet Count 236 k/uL (150-450); RBC 4.75 m/uL (3.80-5.40); RDW 16.9 % (11.5-15.5); WBC 5.3 k/uL (3.8-10.6)
[2021-12-21 20:45] LABS: Albumin 4.4 g/dL (3.5-5.0); Calcium 9.8 mg/dL (8.4-10.2); INR 0.9 (<1.2); Magnesium 1.5 mg/dL (1.6-2.3); Partial Thromboplastin Time 22.7 sec (22.0-30.0); Potassium 4.1 mmol/L (3.5-5.1); Total Bilirubin 0.5 mg/dL (0.2-1.3); Total Protein 7.3 g/dL (6.3-8.2)
[2021-12-21] MEDS ORDERED: Magnesium Replacement Protocol 1 EACH MISC MISCELLANE PRN (20:53)
[2021-12-21] MEDS ORDERED: ASPIRIN 81 MG PO STA (21:00)
[2021-12-21] MEDS ORDERED: NITROGLYCERIN SL TABS 0.4 MG TAB SUBLINGUAL PRN (21:01)
--- NOTE | 2021-12-21 21:07 | ED ---
Chest Pain HPI - General Chief Complaint: Chest Pain Stated Complaint: chest pain Time Seen by Provider: 12/21/21 20:52 Source: patient, RN notes reviewed Mode of arrival: ambulatory Limitations: no limitations - History of Present Illness Initial Comments: Pleasant 81-year-old female presents with left-sided chest pain that started about noon. Initially was intermittent, fleeting, however at 5 PM became constant. Unrelated to exertion. No shortness of breath. No diaphoresis. No nausea. Unrelated to movement. Patient states that she had a stress test last year that showed she had some blockage. This was a Cardiolite stress test. 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 Past medical, surgical, social, and family history reviewed. MD Complaint: chest pain Onset/Timin -: hour(s) Onset: during rest Pain Location: left chest Pain Radiation: none Severity: moderate Quality: aching, dull Consistency: constant (since 5PM) Improves With: nothing Worsens With: nothing Treatments Prior to Arrival: none - Related Data On Oral Contraceptives: No Home Medications Medication Instructions Recorded Confirmed Metoprolol Tartrate 50 mg PO BID 11/28/14 11/16/17 Atorvastatin [Lipitor] 40 mg PO MOWEFR 04/21/15 11/16/17 metFORMIN HCL [Glucophage] 500 mg PO AC-LUNCH 04/21/15 11/16/17 lisinopriL [Zestril] 10 mg PO HS 12/11/16 11/16/17 Cyanocobalamin (Vitamin B-12) 1,000 mcg PO DAILY 11/13/17 11/16/17 [Vitamin B-12] Ferrous Sulfate [Feosol] 325 mg PO DAILY 11/13/17 11/16/17 Allergies Allergy/AdvReac Type Severity Reaction Status Date / Time morphine Allergy Itching Verified 12/21/21 19:58 Penicillins Allergy Itching Verified 12/21/21 19:58 Sulfa (Sulfonamide Allergy Itching Verified 12/21/21 19:58 Antibiotics) Review of Systems ROS Statement: Those systems with pertinent positive or pertinent negative responses have been documented in the HPI. ROS Other: All systems not noted in ROS Statement are negative. EKG Findings - EKG Comments: EKG Findings:: EKG shows sinus rhythm with a rate of 81. QRS duration is widened at 140 ms. Other intervals are normal. Consistent with intraventricular conduction delay. No definitive acute changes otherwise. Left axis deviation. No comparison study Past Medical History Past Medical History: Hyperlipidemia, Hypertension Additional Past Medical History / Comment(s): 11/28/14 Pt direct admit for GI bleed and anemia. Other HX: Pt had stress test/echo on 11/26/14 and just turned in her 24 hr DCG today-she is experiencing tiredness and exertional dyspnea, rectal bleed, internal and external hemorrhoids, benign polyps and diverticulosis, constipation, herniated disc in back, stomach ulcer, arrhythmia where heart beats fast and skips, History of Any Multi-Drug Resistant Organisms: None Reported Past Surgical History: Bladder Surgery, Hysterectomy, Tonsillectomy Additional Past Surgical History / Comment(s): colonoscopies and polypectomies- last colonoscopy 2012 was normal, R leg cosmetic vein stripping, bladder repair, bilateral carpal tunnel release, D&C, partial hysterectomy, R heel spur removed. cataract right eye surgery Additional Past Anesthesia/Blood Transfusion Reaction / Comment(s): Pt states she wakes up shakey after surgery. Pt recieved blood after childbirth and had no reaction. Past Psychological History: No Psychological Hx Reported Smoking Status: Never smoker Past Alcohol Use History: Rare Past Drug Use History: None Reported - Past Family History Father Family Medical History: Diabetes Mellitus Mother Family Medical History: No Reported History Additional Family Medical History / Comment(s): Mother is alive and 95 yrs old. Brother(s) Family Medical History: Cancer Additional Family Medical History / Comment(s): Brother had esophageal and colon cancer-is doing well. General Exam Limitations: no limitations General appearance: alert, in no apparent distress Head exam: Present: atraumatic, normocephalic, normal inspection Eye exam: Present: normal appearance, PERRL, EOMI. Absent: scleral icterus, conjunctival injection, periorbital swelling ENT exam: Present: normal exam, mucous membranes moist. Absent: TM's normal bilaterally, normal external ear exam Neck exam: Present: normal inspection. Absent: tenderness, meningismus, full ROM, lymphadenopathy Respiratory exam: Present: normal lung sounds bilaterally. Absent: respiratory distress, wheezes, rales, rhonchi, stridor, chest wall tenderness, accessory muscle use Cardiovascular Exam: Present: regular rate, normal rhythm, normal heart sounds. Absent: systolic murmur, diastolic murmur, rubs, gallop, clicks GI/Abdominal exam: Present: soft, normal bowel sounds. Absent: distended, tenderness, guarding, rebound, rigid, diminished bowel sounds, hyperactive bowel sounds, hypoactive bowel sounds, organomegaly, mass Extremities exam: Present: normal inspection, full ROM, normal capillary refill. Absent: tenderness, pedal edema, joint swelling, calf tenderness Back exam: Present: normal inspection Neurological exam: Present: alert, oriented X3, CN II-XII intact Psychiatric exam: Present: normal affect, normal mood Skin exam: Present: warm, dry, intact, normal color. Absent: rash Course Vital Signs 12/21/21 19:56 Temperature 98.1 F Pulse Rate 90 Respiratory 18 Rate Blood Pressure 145/86 O2 Sat by Pulse 99 Oximetry - Reevaluation(s) Reevaluation #1: 12/21/21 21:43 Medical record is reviewed Symptoms are improved here in the emergency department Patient is informed of results and questions answered Patient in no distress - Consultations Consultation #1: This discussed with the hospitalist physician from [facility]. Case also discussed with Dr. Mao as we had no comparison study for the EKG. Chest [facility] Patient presents with nonreproducible chest pain, left chest, EKG shows intraventricular conduction delay with no comparison study. Initial troponin is negative. Patient states chest pain became more constant at 5 PM. Aspirin given. We'll try nitroglycerin to relieve the pain. Patient will be admitted for chest pain rule out. Patient met at 4 chest pain rule out. Discussed with hospitalist and cardiology. EKG shows left bundle-branch block with no comparison study. Patient states she was told previously that she had the blockage in her cardiolo gist, Dr. Majano Professor Of Oceanography Dr. Gee Disposition Clinical Impression: Chest pain Disposition: ADMITTED IP TO THIS HOSP Condition: Stable Referrals: Philip Alexander [Primary Care Provider] - 1-2 days Time of Disposition: 21:12 Decision to Admit Reason: Admit from EC Decision Time: 21:12
--- NOTE | 2021-12-21 21:36 | XR ---
EXAMINATION TYPE: XR chest 2V DATE OF EXAM: 12/21/2021 9:17 PM COMPARISON: CT abdomen pelvis 12/11/2016. TECHNIQUE: XR chest 2V Frontal and lateral views of the chest. CLINICAL INDICATION:Female, 81 years old with history of Chest Pain; FINDINGS: Lungs/Pleura: There is no evidence of pleural effusion, focal consolidation, or pneumothorax. Pulmonary vascularity: Unremarkable. Heart/mediastinum: Cardiomediastinal silhouette is enlarged and stable. Large hiatal hernia present. Musculoskeletal: No acute osseous pathology. IMPRESSION: 1. No acute cardiopulmonary disease/process. 2. Large hiatal hernia.
[2021-12-21] MEDS ORDERED: NALOXONE 0.4 MG/ML 1 ML VIAL IV PRN (21:45)
[2021-12-21] MEDS ORDERED: ACETAMINOPHEN TAB 325 MG TAB PO PRN (21:45)
[2021-12-21] MEDS ORDERED: DEXTROSE 50% SYRINGE 50 ML IVP PRN ×2 (21:48)
[2021-12-21] MEDS: MAGNESIUM SULFATE-D5W PMX 1 GM in DEXTROSE/WATER 1 100ML.BAG IVPB SCH ×2 (22:06→22:57)
[2021-12-21] MEDS: PANTOPRAZOLE 40 MG/10 ML VIAL IV SCH (22:57)
[2021-12-22 04:56] LABS: Anisocytosis Slight; Basophils % (A) 0 %; Eosinophils # (A) 0.2 k/uL (0-0.7); Eosinophils % (A) 3 %; HCT 38.4 % (34.0-46.0); HGB 12.2 gm/dL (11.4-16.0); Hypochromasia Slight; Lymphocytes # (A) 1.4 k/uL (1.0-4.8); Lymphocytes % (A) 29 %; MCH 27.7 pg (25.0-35.0); MCHC 31.7 g/dL (31.0-37.0); MCV 87.3 fL (80.0-100.0); Mean Platelet Volume 8.9; Monocytes # (A) 0.4 k/uL (0-1.0); Monocytes % (A) 8 %; Neutrophils # (A) 2.7 k/uL (1.3-7.7); Neutrophils % (A) 58 %; Platelet Count 200 k/uL (150-450); RBC 4.39 m/uL (3.80-5.40); RDW 16.8 % (11.5-15.5); WBC 4.7 k/uL (3.8-10.6)
[2021-12-22 05:07] LABS: Calcium 9.2 mg/dL (8.4-10.2); Magnesium 2.1 mg/dL (1.6-2.3); Potassium 3.9 mmol/L (3.5-5.1); Total Bilirubin 0.4 mg/dL (0.2-1.3); Total Protein 6.6 g/dL (6.3-8.2)
--- NOTE | 2021-12-22 05:38 | P.HPIM ---
History of Present Illness H&P Date: 12/22/21 Chief Complaint: chest pain 81 year old female with hypertension , DM patient comes in due to left sided chest pain, described as LUQ left lower chest aching pain 7/10 in severity, non radiating, had couple short episodes earlier during the day , then got worse toward evening time, not related to activity, no associated SOB, dizziness, palpitations, nausea or vomiting, no profuse sweating. she is known to have hiatal hernia , and GERD, but this pain felt different to her. denies any associated coughing, fever, chills, SOB, changes in bowel or urinary habits. denies any GI bleeding she had a stress test done 5 years ago , unremarkable at the time denies any smoking, drinking , or illicit drugs denies any family history of CAD, denies any recent travel or hospital stay , denies any history of blood clots. patient drove herself to the hospital blood work unremarkable, Mg 1.5 , EKG showed LBBB. Review of Systems Pertinent positives as noted in HPI. All other systems were reviewed and are negative Past Medical History Past Medical History: Hyperlipidemia, Hypertension Additional Past Medical History / Comment(s): 11/28/14 Pt direct admit for GI bleed and anemia. Other HX: Pt had stress test/echo on 11/26/14 and just turned in her 24 hr DCG today-she is experiencing tiredness and exertional dyspnea, rectal bleed, internal and external hemorrhoids, benign polyps and diverticulosis, constipation, herniated disc in back, stomach ulcer, arrhythmia where heart beats fast and skips, History of Any Multi-Drug Resistant Organisms: None Reported Past Surgical History: Bladder Surgery, Hysterectomy, Tonsillectomy Additional Past Surgical History / Comment(s): colonoscopies and polypectomies- last colonoscopy 2012 was normal, R leg cosmetic vein stripping, bladder repair, bilateral carpal tunnel release, D&C, partial hysterectomy, R heel spur removed. cataract right eye surgery Additional Past Anesthesia/Blood Transfusion Reaction / Comment(s): Pt states she wakes up shakey after surgery. Pt recieved blood after childbirth and had no reaction. Past Psychological History: No Psychological Hx Reported Additional Psychological History / Comment(s): Pt resides with her significant other. She is independent. She uses no assistive devices. She has no home care. She drives. Smoking Status: Never smoker Past Alcohol Use History: Rare Past Drug Use History: None Reported - Past Family History Father Family Medical History: Diabetes Mellitus Mother Family Medical History: No Reported History Additional Family Medical History / Comment(s): Mother is alive and 95 yrs old. Brother(s) Family Medical History: Cancer Additional Family Medical History / Comment(s): Brother had esophageal and colon cancer-is doing well. Medications and Allergies Home Medications Medication Instructions Recorded Confirmed Type Metoprolol Tartrate 50 mg PO BID 11/28/14 12/21/21 History Atorvastatin [Lipitor] 40 mg PO MOWEFR@1700 04/21/15 12/21/21 History metFORMIN HCL [Glucophage] 500 mg PO PC-SUPPER 04/21/15 12/21/21 History lisinopriL [Zestril] 10 mg PO HS 12/11/16 12/21/21 History Ferrous Sulfate [Feosol] 325 mg PO PC-SUPPER 11/13/17 12/21/21 History Omeprazole 40 mg PO DAILY 12/21/21 12/21/21 History Allergies Allergy/AdvReac Type Severity Reaction Status Date / Time morphine Allergy Itching Verified 12/21/21 21:43 Penicillins Allergy Rash/Hives Verified 12/21/21 21:43 Sulfa (Sulfonamide Allergy Itching Verified 12/21/21 21:43 Antibiotics) Physical Exam Vitals: Vital Signs Temp Pulse Pulse Resp BP BP Pulse Ox 12/22/21 03:51 97.6 F 73 17 156/74 96 12/21/21 22:54 98.4 F 90 16 145/73 96 12/21/21 22:10 88 18 143/79 12/21/21 19:56 98.1 F 90 18 145/86 99 Intake and Output 12/21/21 12/21/21 12/22/21 14:59 22:59 06:59 Other: Weight 75.296 kg Constitutional: No acute distress, conversant, pleasant Eyes: Anicteric sclerae, moist conjunctiva, Pupils equal round reactive to light ENMT: NC/AT Oropharynx clear, no erythema, or exudates Neck: Supple, FROM, no masses, or JVD No carotid bruits No thyromegaly Lungs: Clear to auscultation Clear to percussion Normal respiratory effort, no accessory muscle use Cardiovascular: Heart regular in rate and rhythm, No murmurs, gallops, or rubs No peripheral edema Abdominal: Soft Nontender, no guarding, rebound or rigidity Abdomen moving with respiration Normoactive bowel sounds No hepatomegaly, No splenomegaly No palpable mass No abdominal wall hernia noted Skin: Normal temperature, tone, texture, turgor No induration No subcutaneous nodules No rash, lesions No ulcers Extremities: No digital cyanosis No clubbing Pedal pulses intact and symmetrical Radial pulses intact and symmetrical No calf tenderness Psychiatric: Alert and oriented to person, place and time Appropriate affect fair judgement Neuro Muscles Strength 5/5 in all 4 extremities Sensation to light touch grossly present throughout Cranial nerves II-XII grossly intact No focal sensory deficits Lymphatics: no palpable cervical or supraclavicular , or inguinal lymph nodes Results CBC & Chem 7: 12/22/21 03:42 12/22/21 03:42 Labs: Abnormal Lab Results - Last 24 Hours (Table) 12/21/21 12/21/21 12/22/21 Range/Units 20:20 20:20 03:42 RDW 16.9 H (11.5-15.5) % Glucose 110 H (74-99) mg/dL Magnesium 1.5 L (1.6-2.3) mg/dL AST 47 H 42 H (14-36) U/L ALT 39 H 35 H (4-34) U/L 12/22/21 Range/Units 03:42 RDW 16.8 H (11.5-15.5) % Glucose (74-99) mg/dL Magnesium (1.6-2.3) mg/dL AST (14-36) U/L ALT (4-34) U/L Thrombosis Risk Factor Assmnt - Choose All That Apply Each Factor Represents 1 point: Obesity (BMI >25) Each Risk Factor Represents 3 Points: Age 75 years or older Thrombosis Risk Factor Assessment Total Risk Factor Score: 4 Thrombosis Risk Factor Assessment Level: Moderate Risk Assessment and Plan Assessment: atypical chest pain rule out ACS EKG no acute ST changes CXR no acute pathology trops negative 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
[2021-12-22 07:20] LABS: Glucose,Whole Blood 105 mg/dL (70-110)
[2021-12-22] MEDS ORDERED: AMINOPHYLLINE 500 MG/20 ML VIAL IV PRN (08:07)
[2021-12-22] MEDS ORDERED: CAFFEINE CITRATE 60 MG/3 ML VIAL IV PRN (08:07)
[2021-12-22] MEDS ORDERED: REGADENOSON 0.4 MG/5 ML SYRINGE IV PRN (08:07)
--- NOTE | 2021-12-22 08:07 | P.CRDCN ---
History of Present Illness Consult date: 12/22/21 History of present illness: History of Present Illness: The patient is a 81-year-old female with a known history of hypertension, hyperlipidemia and diabetes mellitus as well as a history of chronic left bundle branch block, hiatal hernia who presented with symptoms of chest discomfort. The discomfort was on and off yesterday, worse the evening, persistent and not associated with any other symptoms. She presented to the emergency room and subsequently admitted. She has no prior history of obstructive coronary artery disease, she has been followed in the past by Dr. Majano. She is not very active physically because of her knee discomfort but has no exertional chest discomfort, dyspnea on exertion, PND, orthopnea or peripheral edema. She denies any dizziness or palpitations, she has no syncope. In the emergency room her EKG showed left bundle branch block and she had normal troponin. She is pain- free at the time of my evaluation. Medications: Omeprazole 40 mg daily, metoprolol 50 mg twice a day, metformin, Zestril 10 mg daily, Lipitor 40 mg 4 times a week Review of Systems: Respiratory: No history of asthma, bronchitis or recent cough. GI: No nausea or vomiting . No history of peptic ulcer disease. No recent GI bleed, she has a history of hiatal hernia with reflux symptoms. : No hematuria or dysuria. Nervous System: No stroke or seizure. Physical Examination: 81-year-old female, alert and oriented no apparent distress,Blood pressure 137/80, Heart rate 79 Head: Normocephalic. Eyes: Sclerae nonicteric. Neck: Good carotid upstroke, no bruit, no jugular venous distention. Lungs: Clear to auscultation. Heart: Regular rate and rhythm, S1-S2, no S3, no rub. Systolic ejection murmur. Abdomen: Soft nontender, positive bowel sounds no organomegaly. Extremities: No edema, intact distal pulses. Labs: Potassium 3.9, BUN 15, creatinine 0.92, hemoglobin 12.2, troponin less than 0.012. Chest x-ray with no acute problem with large hiatal hernia EKG: Sinus mechanism with left bundle branch block Impression: 1. Chest discomfort of unclear etiology, probably noncardiac 2. Chronic left bundle branch block 3. History of hypertension 4. History of hyperlipidemia 5. History of hiatal hernia Plan: 1. Obtain an echocardiogram with Doppler 2. Obtain a nuclear scan 3. Continue home medications 4. Depending on the results of the testing further recommendations will be made 5. Thank you for this consult we will follow with you Past Medical History Past Medical History: Hyperlipidemia, Hypertension Additional Past Medical History / Comment(s): 11/28/14 Pt direct admit for GI bleed and anemia. Other HX: Pt had stress test/echo on 11/26/14 and just turned in her 24 hr DCG today-she is experiencing tiredness and exertional dyspnea, rectal bleed, internal and external hemorrhoids, benign polyps and diverticulosis, constipation, herniated disc in back, stomach ulcer, arrhythmia where heart beats fast and skips, History of Any Multi-Drug Resistant Organisms: None Reported Past Surgical History: Bladder Surgery, Hysterectomy, Tonsillectomy Additional Past Surgical History / Comment(s): colonoscopies and polypectomies- last colonoscopy 2012 was normal, R leg cosmetic vein stripping, bladder repair, bilateral carpal tunnel release, D&C, partial hysterectomy, R heel spur removed. cataract right eye surgery Additional Past Anesthesia/Blood Transfusion Reaction / Comment(s): Pt states she wakes up shakey after surgery. Pt recieved blood after childbirth and had no reaction. Past Psychological History: No Psychological Hx Reported Additional Psychological History / Comment(s): Pt resides with her significant other. She is independent. She uses no assistive devices. She has no home care. She drives. Smoking Status: Never smoker Past Alcohol Use History: Rare Past Drug Use History: None Reported - Past Family History Father Family Medical History: Diabetes Mellitus Mother Family Medical History: No Reported History Additional Family Medical History / Comment(s): Mother is alive and 95 yrs old. Brother(s) Family Medical History: Cancer Additional Family Medical History / Comment(s): Brother had esophageal and colon cancer-is doing well. Medications and Allergies Home Medications Medication Instructions Recorded Confirmed Type Metoprolol Tartrate 50 mg PO BID 11/28/14 12/21/21 History Atorvastatin [Lipitor] 40 mg PO MOWEFR@1700 04/21/15 12/21/21 History metFORMIN HCL [Glucophage] 500 mg PO PC-SUPPER 04/21/15 12/21/21 History lisinopriL [Zestril] 10 mg PO HS 12/11/16 12/21/21 History Ferrous Sulfate [Feosol] 325 mg PO PC-SUPPER 11/13/17 12/21/21 History Omeprazole 40 mg PO DAILY 12/21/21 12/21/21 History Allergies Allergy/AdvReac Type Severity Reaction Status Date / Time morphine Allergy Itching Verified 12/21/21 21:43 Penicillins Allergy Rash/Hives Verified 12/21/21 21:43 Sulfa (Sulfonamide Allergy Itching Verified 12/21/21 21:43 Antibiotics) Physical Exam Vitals: Vital Signs Temp Pulse Pulse Resp BP BP Pulse Ox 12/22/21 07:00 97.9 F 79 18 137/86 98 12/22/21 03:51 97.6 F 73 17 156/74 96 12/21/21 22:54 98.4 F 90 16 145/73 96 12/21/21 22:10 88 18 143/79 12/21/21 19:56 98.1 F 90 18 145/86 99 Intake and Output 12/21/21 12/22/21 12/22/21 22:59 06:59 14:59 Other: # Voids 2 Weight 75.296 kg Results 12/22/21 03:42 12/22/21 03:42 Cardiac Enzymes 12/21/21 12/21/21 12/22/21 Range/Units 20:20 20:20 00:23 AST 47 H (14-36) U/L Troponin I <0.012 <0.012 (0.000-0.034) ng/mL 12/22/21 12/22/21 Range/Units 03:42 03:42 AST 42 H (14-36) U/L Troponin I <0.012 (0.000-0.034) ng/mL Coagulation 12/21/21 Range/Units 20:20 PT 10.0 (9.0-12.0) sec APTT 22.7 (22.0-30.0) sec CBC 12/21/21 12/22/21 Range/Units 20:20 03:42 WBC 5.3 4.7 (3.8-10.6) k/uL RBC 4.75 4.39 (3.80-5.40) m/uL Hgb 13.1 12.2 (11.4-16.0) gm/dL Hct 41.2 38.4 (34.0-46.0) % Plt Count 236 200 (150-450) k/uL Comprehensive Metabolic Panel 12/21/21 12/22/21 Range/Units 20:20 03:42 Sodium 139 138 (137-145) mmol/L Potassium 4.1 3.9 (3.5-5.1) mmol/L Chloride 102 104 (98-107) mmol/L Carbon Dioxide 24 24 (22-30) mmol/L BUN 15 15 (7-17) mg/dL Creatinine 0.97 0.92 (0.52-1.04) mg/dL Glucose 110 H 95 (74-99) mg/dL Calcium 9.8 9.2 (8.4-10.2) mg/dL AST 47 H 42 H (14-36) U/L ALT 39 H 35 H (4-34) U/L Alkaline Phosphatase 97 90 (38-126) U/L Total Protein 7.3 6.6 (6.3-8.2) g/dL Albumin 4.4 4.0 (3.5-5.0) g/dL Current Medications Generic Name Dose Route Start Last Admin Trade Name Freq PRN Reason Stop Dose Admin Acetaminophen 650 mg 12/21/21 21:45 Acetaminophen Tab 325 Mg Tab PO Q6HR PRN Mild Pain or Fever > 100.5 Aspirin 81 mg 12/22/21 09:00 Aspirin 81 Mg PO DAILY [facility] Atorvastatin Calcium 40 mg 12/22/21 17:00 Atorvastatin 40 Mg Tab PO MOWEFR@1700 [facility] Dextrose/Water 25 ml 12/21/21 21:48 Dextrose 50% Syringe 50 Ml IVP PER PROTOCOL PRN Hypoglycemia Protocol Dextrose/Water 50 ml 12/21/21 21:48 Dextrose 50% Syringe 50 Ml IVP PER PROTOCOL PRN Hypoglycemia Protocol Ferrous Sulfate 325 mg 12/22/21 18:30 Ferrous Sulfate 325 Mg Tab PO PC-SUPPER [facility] Heparin Sodium (Porcine) 5,000 unit 12/22/21 09:00 Heparin Sodium,Porcine/Pf 5,000 Unit/0.5 Ml Syringe SQ Q12HR [facility] Insulin Aspart 0 unit 12/22/21 07:30 Insulin Aspart (Novolog) 100 Unit/Ml Vial SQ ACHS [facility] Protocol Lisinopril 10 mg 12/22/21 21:00 Lisinopril 10 Mg Tab PO HS [facility] Metoprolol Tartrate 50 mg 12/22/21 09:00 Metoprolol Tartrate 50 Mg Tab PO BID JESI Miscellaneous Information 1 each 12/21/21 20:53 Magnesium Replacement Protocol 1 Each Misc MISCELLANE DAILY PRN Per Protocol Protocol Naloxone HCl 0.2 mg 12/21/21 21:45 Naloxone 0.4 Mg/Ml 1 Ml Vial IV Q2M PRN Opioid Reversal Nitroglycerin 0.4 mg 12/21/21 21:01 Nitroglycerin Sl Tabs 0.4 Mg Tab SUBLINGUAL Q5M PRN Chest Pain Pantoprazole Sodium 40 mg 12/21/21 22:00 12/21/21 22:57 Pantoprazole 40 Mg/10 Ml Vial IV 40 mg DAILY JESI Administration Intake and Output 12/21/21 12/22/21 12/22/21 22:59 06:59 14:59 Other: # Voids 2 Weight 75.296 kg 12/22/21 03:42 12/22/21 03:42
[2021-12-22] MEDS ORDERED: HEPARIN SODIUM,PORCINE/PF 5,000 UNIT/0.5 ML SYRINGE SQ SCH (09:00)
[2021-12-22] MEDS ORDERED: METOPROLOL TARTRATE 50 MG TAB PO SCH (09:00)
[2021-12-22] MEDS ORDERED: ASPIRIN 81 MG PO SCH (09:00)
[2021-12-22] MEDS: INSULIN ASPART (NovoLOG) 100 UNIT/ML VIAL SQ SCH ×2 (11:01→15:45)
[2021-12-22] MEDS: PANTOPRAZOLE 40 MG/10 ML VIAL IV SCH (11:38)
--- NOTE | 2021-12-22 11:49 | NM ---
EXAMINATION TYPE: NM stress lexiscan cardiolite DATE OF EXAM: 12/22/2021 COMPARISON: NONE HISTORY: Chest pain TECHNIQUE: After the intravenous administration of 9.8 mCi Tc 99m Sestamibi - Cardiolite resting SPE CT images acquired 45 minutes post injection. At peak stress 25.3 mCi Tc 99m Sestamibi - Stress images obtained 65 minutes post injection The patient was stressed with 0.4mg Lexiscan. FINDINGS: There is a large fixed defect along the inferior wall greatest at the cardiac apex. This has some ext ension into the septal wall. No reversible stress defects on Spect images. There is hypokinesia of the inferior wall. Some minimal dyskinesia of the septal wall appears to be p resent. Ejection fraction remains normal and is calculated to be 60 %. IMPRESSION: 1. 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 2. Hypokinesia of the inferior wall with some mild dyskinesia of the septal wall. 3. No reversible stress-induced ischemic changes.
[2021-12-22 12:32] LABS: Glucose,Whole Blood 121 mg/dL (70-110)
--- NOTE | 2021-12-22 12:38 | CA ---
Transthoracic Echo Report Name: Marilee Stoll Age: 81 Gender: F : 1940 Exam Date: 12/22/2021 12:06 Exam Location: [facility] Ht (in): 61 Wt (lb): 166 Ordering Physician: Julia Mao MD ([id number]) Attending/Referring Phys: Development Representative Minda Zambrano RDCS Procedure CPT: Indications: CP Cardiac Hx: Technical Quality: Fair Contrast 1: Total Dose (mL): Contrast 2: Total Dose (mL): MEASUREMENTS (Male / Female) Normal Values 2D ECHO LV Diastolic Diameter PLAX 4.3 cm 4.2 - 5.9 / 3.9 - 5.3 cm LV Systolic Diameter PLAX 3.1 cm IVS Diastolic Thickness 1.3 cm 0.6 - 1.0 / 0.6 - 0.9 cm LVPW Diastolic Thickness 1.3 cm 0.6 - 1.0 / 0.6 - 0.9 cm LV Relative Wall Thickness 0.6 RV Internal Dim ED PLAX 2.4 cm LA Volume 22.5 cm??? 18 - 58 / 22 - 52 cm??? M-MODE Aortic Root Diameter MM 3.7 cm MV E Point Septal Separation 0.6 cm AV Cusp Separation MM 2.3 cm DOPPLER AV Peak Velocity 127.7 cm/s AV Peak Gradient 6.5 mmHg AI Peak Velocity 392.1 cm/s AI Peak Gradient 61.5 mmHg AI Pressure Half Time 552.5 ms MV Area PHT 16.4 cm??? MV Deceleration Time 59.8 ms TR Peak Velocity 243.4 cm/s TR Peak Gradient 23.7 mmHg Right Ventricular Systolic Press 27.9 mmHg FINDINGS Left Ventricle Left ventricular ejection fraction is estimated at 55-60%. Left ventricular cavity size normal. Mild concentric left ventricular hypertrophy. Right Ventricle Normal right ventricular size and function. Right ventricular systolic pressure within normal limits. Right Atrium Normal right atrial size. Left Atrium Normal left atrial size. No evidence for an atrial septal defect. Mitral Valve Mitral valve thickened.mild mitral regurgitation. Aortic Valve Trileaflet aortic valve. No aortic stenosis. Mild aortic regurgitation.aortic valve sclerosis. Tricuspid Valve Mild tricuspid regurgitation.structurally normal tricuspid valve. Pulmonic Valve Pulmonic valve not well visualized. Pericardium Normal pericardium. No pericardial effusion. Aorta Mild aortic dilatation at the level of the sinuses of valsalva 39 mm. CONCLUSIONS 1. Normal left size and systolic function 2. Mild mitral and tricuspid regurgitation Previewed by: Dr. Julia Mao MD (Electronically Signed) Final Date: 22 December 2021 12:37
[2021-12-22 15:17] VITALS: BP 138/78; PULSE 84; RESP 20; TEMP 97.6
--- NOTE | 2021-12-22 15:20 | P.DS ---
Providers Date of admission: 12/21/21 22:15 Expected date of discharge: 12/22/21 Attending physician: Aj Larson MD Consults: 12/21/21 21:45 Consult Physician Stat Consulting Provider: Julia Mao Consult Reason/Comments: chest pain Do you want consulting provider notified?: Already Contacted Primary care physician: Philip Alexander [facility] Course: Discharge Diagnosis: Chest pain, acute coronary event ruled out Hiatal hernia, patient to follow-up outpatient with general surgery for evaluation. Hypertension Hyperlipidemia Diabetes mellitus Hypomagnesemia, resolved Hospital Course: Patient is a very pleasant 81-year-old female with a past medical history of hypertension, hyperlipidemia, and diabetes mellitus. She presented to the emergency department on 12/22/21 with a chief complaint of chest pain. She underwent full evaluation in the emergency department. EKG revealing sinus rhythm at 81 bpm with T-wave inversion in leads I and AVL. Chest x-ray negative for acute cardiopulmonary process revealing a large hiatal hernia. CBC, CMP, and troponin all unremarkable. Magnesium low 1.5 and replaced. Patient was admitted under our services with consultation to cardiology. Troponins trended and all negative at less than 0.012. Hemoglobin A1c was completed resulting in 6.2%. Patient underwent evaluation by cardiology recommending a stress test. Echocardiogram completed revealing EF of 55-60% with mild mitral and tricuspid regurgitation. Lexiscan stress test is negative but revealed EF of 60% along with a large prior infarct inferior wall with some extension into the inferior septal wall and hypokinesia of the middle wall with some mild dyskinesia of the septal wall with no reversible stress-induced ischemic changes.Cardiology recommending no further testing recommendations at this time and recommend outpatient follow-up in our office in 1 week. Patient seen and examined at bedside. Vital signs reviewed and stable. General: Nontoxic, no distress and appears stated age. Derm: Skin warm and dry, normal coloration for ethnicity. Head: Atraumatic, normocephalic and symmetric. Eyes: EOMs intact, no lid lag, and anicteric sclera Mouth: no lip lesions, mucus membranes moist Cardiovascular: regular rate and rhythm with normal S1S2, no murmur, positive posterior tibial pulses bilaterally, and cap refill < 2 seconds. Lungs: Respirations even, regular, and unlabored on room air. Lungs CTA bilaterally, no rhonchi, no rales, no wheezing, and no accessory muscle usage. Abdominal: soft, nontender to palpation, no guarding, no appreciable organomegaly Ext: ROM intact. No gross muscle atrophy, no edema, no contractures Neuro: Speech clear, face symmetrical and CN II-XII grossly intact with no noted focal neuro deficits Psych: Alert and oriented to person, place, time, and situation. Appropriate and pleasant affect. A total of 38 minutes of time were spent preparing this complex discharge summary. Pt was discharged on 12/22/21 at 3:18 PM. Patient Condition at Discharge: Stable Plan - Discharge Summary New Discharge Prescriptions: No Action Metoprolol Tartrate 50 mg PO BID metFORMIN HCL [Glucophage] 500 mg PO PC-SUPPER Atorvastatin [Lipitor] 40 mg PO MOWEFR@1700 lisinopriL [Zestril] 10 mg PO HS Ferrous Sulfate [Feosol] 325 mg PO PC-SUPPER Omeprazole 40 mg PO DAILY Discharge Medication List Metoprolol Tartrate 50 mg PO BID 11/28/14 [History] Atorvastatin [Lipitor] 40 mg PO MOWEFR@1700 04/21/15 [History] metFORMIN HCL [Glucophage] 500 mg PO PC-SUPPER 04/21/15 [History] lisinopriL [Zestril] 10 mg PO HS 12/11/16 [History] Ferrous Sulfate [Feosol] 325 mg PO PC-SUPPER 11/13/17 [History] Omeprazole 40 mg PO DAILY 12/21/21 [History] Follow up Appointment(s)/Referral(s): Chuy Garcia MD [Medical Doctor] - 1 Week (Follow up on large hiatal hernia) Julia Mao MD [STAFF PHYSICIAN] - 12/31/21 4:15 pm Philip Alexander [Primary Care Provider] - 1-2 days Activity/Diet/Wound Care/Special Instructions: Activity: As tolerated. Take breaks as needed. Diet: Heart healthy and carb consistent diet. Avoid salts, or foods with hidden salts such as canned or boxed foods and frozen dinners. Extra salt makes your heart work harder and traps the fluid in your body for longer. Special Instructions: Take all of your medications as directed and remember to keep all of your doctor's appointments and follow-up as needed. Thank you for allowing us to participate in your care, it was truly a pleasure having you for our patient!!! Discharge Disposition: HOME SELF-CARE
[2021-12-22] MEDS ORDERED: ATORVASTATIN 40 MG TAB PO SCH (17:00)
[2021-12-22] MEDS ORDERED: FERROUS SULFATE 325 MG TAB PO SCH (18:30)
[2021-12-22] MEDS ORDERED: lisinopriL 10 MG TAB PO SCH (21:00)
== END 2021-12-22 15:56 | disposition home or self-care (01) ==
LOC: EC 19:54 → 6NMEDSUR 22:15
PROVIDERS: ADMIT Internal Medicine; ATTEND Internal Medicine
DX: R07.89 Other chest pain (principal); K44.9 Diaphragmatic hernia without obstruction or gangrene; E83.42 Hypomagnesemia; E11.9 Type 2 diabetes mellitus without complications; E78.5 Hyperlipidemia, unspecified; I11.9 Hypertensive heart disease without heart failure; I08.3 Combined rheumatic disorders of mitral, aortic and tricuspid valves; I44.7 Left bundle-branch block, unspecified; G24.9 Dystonia, unspecified; Z79.899 Other long term (current) drug therapy; Z79.84 Long term (current) use of oral hypoglycemic drugs; Z88.5 Allergy status to narcotic agent; Z88.0 Allergy status to penicillin; Z88.2 Allergy status to sulfonamides; Z90.710 Acquired absence of both cervix and uterus; Z83.3 Family history of diabetes mellitus; Z80.0 Family history of malignant neoplasm of digestive organs
CPT/HCPCS: 96365; 96366; 96372; 96375; 96376; 99285; 36415; 93005; 93017; 93306; 80053 ×2; 83690; 83735 ×2; 84484 ×2; 85025 ×2; 85610; 85730; 83036; 71046; 78452; G0378 ×2; A9500; J3475; J2785; C9113 ×2; J1644

== ENCOUNTER → 2022-04-15 | Outpatient (CLI) | payer MEDICARE, OTHER ==
--- NOTE | 2022-04-18 09:39 | MM ---
Reason for Exam: Screening (asymptomatic). Last mammogram was performed 1 year(s) and 1 month(s) ago. Patient History: Menarche at age 14. First Full-Term at age 21. Hysterectomy at age 42. Postmenopausal. Estrogen for 4 years from age 46 until age 50. Hormonal Contraceptives for 2 years from age 22 until age 24. 11/16/2017, Benign Core Biopsy on the right side. Risk Values: Carla 5 year model risk: 1.4%. NCI Lifetime model risk: 2.4%. Prior Study Comparison: 11/14/2018 Bilateral Screening Mammogram, [facility]. 12/23/2019 Bilateral Screening Mammogram, [facility]. 03/03/2021 Bilateral Screening Mammogram, [facility]. Tissue Density: The breast tissue is heterogeneously dense. This may lower the sensitivity of mammography. Findings: Analyzed By CAD. A mammotome biopsy clip right breast is redemonstrated. There are a few scattered tiny benign-appearing round calcifications redemonstrated throughout the bilateral breasts. There is no suspicious group of microcalcifications or new suspicious mass in either breast. Overall Assessment: Benign, BI-RAD 2 Management: Screening Mammogram of both breasts in 1 year. A clinical breast exam by your physician is recommended on an annual basis and results should be correlated with mammographic findings. Electronically signed and approved by: Oscar Sandhu M.D.
== END | disposition home or self-care (01) ==
LOC: RADMAMWWP 10:48
PROVIDERS: ATTEND Family Medicine
DX: Z12.31 Encounter for screening mammogram for malignant neoplasm of breast (principal); Z78.0 Asymptomatic menopausal state
CPT/HCPCS: 77063; 77067

== ENCOUNTER 2022-08-18 06:51 | Day surgery (SDC) | payer MEDICARE, OTHER ==
[2022-08-16 09:03] VITALS: BMI 30.2
[~2022-08-18 06:51] MED LIST: ALPRAZolam 0.25 MG TAB PO PRN; ALPRAZolam 0.5 MG TAB PO PRN; ASPIRIN 325 MG TAB PO STA; ATORVASTATIN 80 MG TAB PO STA; HEPARIN SODIUM,PORCINE 10,000 UNIT in SODIUM CHLORIDE 0.9% 1,000 ML IRRIGATION PRN; HEPARIN SODIUM,PORCINE 2,500 UNIT in SODIUM CHLORIDE 0.9% 250 ML IRRIGATION PRN; NITROGLYCERIN SL TABS 0.4 MG TAB SUBLINGUAL PRN; SODIUM CHLORIDE 0.9% 1,000 ML in EMPTY BAG 1 BAG IV SCH
[2022-08-18 07:18] VITALS: RESP 18; TEMP 98.2
[2022-08-18 07:19] LABS: Glucose,Whole Blood 110 mg/dL (70-110)
[2022-08-18] MEDS ORDERED: fentaNYL (PF) 50 MCG/ML 2 ML AMP ONE (09:15)
[2022-08-18] MEDS ORDERED: VERAPAMIL 2.5 MG/ML 2 ML AMP ONE (09:15)
[2022-08-18] MEDS ORDERED: fentaNYL (PF) 50 MCG/ML 2 ML AMP IV ONE (09:45)
[2022-08-18] MEDS ORDERED: LIDOCAINE 1% INJ 10MG/ML (5 ML VIAL-PF) SQ ONE (09:47)
[2022-08-18] MEDS ORDERED: MIDAZOLAM 2 MG/2 ML VIAL IV ONE (09:48)
[2022-08-18] MEDS ORDERED: VERAPAMIL SYRINGE (5 MG/10 ML) INTRAARTER ONE (09:49)
[2022-08-18] MEDS ORDERED: HEPARIN SODIUM 1,000 UN/ML (10ML VL) IV ONE (09:55)
[2022-08-18] MEDS ORDERED: IOPAMIDOL-370 100ML BTL INJ ONE (10:11)
[2022-08-18] MEDS ORDERED: RX INFO: IV CONTRAST WAS GIVEN 1 EACH MISC MISCELLANE PRN (10:18)
--- NOTE | 2022-08-18 10:24 | P.CARDCATH ---
Date of Procedure: 08/18/22 Description of Procedure: Cardiac Catheterization: The patient is a 81-year-old female with a history of hypertension, hyperlipidemia and diabetes mellitus who has been complaining of progressive dyspnea on exertion, limiting in addition to episodes of chest discomfort with physical activity. Recommendations were made regarding cardiac catheterization, the risks and the complications were discussed with the patient who is in full understanding and agreement. Procedure Description: Patient was brought to clinical laboratory aide in fasting semi-sedated state after receiving Fentanyl and Benadryl achieiving moderate conscious sedated state. Using Xylocaine Anesthesia and Seldinger technique, a 6-Nauruan sheath was introduced in the right radial artery . Subsequently, selective coronary angiography was performed using a 5-Nauruan 3.5 bend Jo catheter. Multiple views of the coronary artery including hemiaxial views were obtained. The 5-Nauruan pigtail catheter was used to cross the aortic valve and LVEDP was calculated. Following that, catheter and sheath were removed. Hemostasis was obtained with deployment of TR band . There was no immediate complication. Patient was returned to room in stable condition. Of note, the patient received a total of 4000 units of intravenous heparin as well as intra-arterial verapamil. Findings: Left main: This is a short sized vessel bifurcating immediately into LAD and left circumflex, the left main has no high-grade stenosis LAD: This is a large size vessel giving rise to moderately sized diagonal branch in the midsegment, the LAD had no obstructive disease. The LAD tapers down in the distal third. Left circumflex: This is a large nondominant vessel giving rise to 2 obtuse marginal branch, left circumflex and its branches have no obstructive disease. RCA: This is a large dominant vessel has a posterior takeoff. The proximal RCA has 20% plaque, the rest of the vessel has no high-grade stenosis. Left Ventriculogram: Not performed Hemodynamics: There was no gradient across the aortic valve, LVEDP was 5-10 mmHg Conclusion: 1. 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 Right dominance 3. No obstructive disease in the LAD and left circumflex 4. Normal LVEDP Recommendations: The patient will continue present medical therapy. I see no evidence to suggest a cardiac etiology to her presentations.. The findings and the recommendations were discussed with the patient and the family and they were in full understanding and agreement. Duration of sedation is 21 minutes.
[2022-08-18] MEDS ORDERED: SODIUM CHLORIDE 0.9% 1,000 ML IV SCH (10:30)
[2022-08-18 13:45] VITALS: BP 110/59; PULSE 76
[2022-08-18] MEDS ORDERED: METOPROLOL TARTRATE 50 MG TAB PO SCH (21:00)
[2022-08-18] MEDS ORDERED: lisinopriL 10 MG TAB PO SCH (21:00)
[2022-08-19] MEDS ORDERED: PANTOPRAZOLE 40 MG TABLET PO SCH (07:30)
[2022-08-19] MEDS ORDERED: ATORVASTATIN 40 MG TAB PO SCH (17:00)
== END 2022-08-18 13:51 | disposition home or self-care (01) ==
LOC: CATHCVL 06:51
PROVIDERS: ATTEND Internal Medicine Interventional Cardiology
DX: I25.10 Atherosclerotic heart disease of native coronary artery without angina pectoris (principal); I10 Essential (primary) hypertension; E78.5 Hyperlipidemia, unspecified; E11.9 Type 2 diabetes mellitus without complications; I44.7 Left bundle-branch block, unspecified; E21.3 Hyperparathyroidism, unspecified; D64.9 Anemia, unspecified; Z88.0 Allergy status to penicillin; Z88.2 Allergy status to sulfonamides; Z88.5 Allergy status to narcotic agent; Z87.19 Personal history of other diseases of the digestive system; Z79.899 Other long term (current) drug therapy; Z79.82 Long term (current) use of aspirin; Z79.84 Long term (current) use of oral hypoglycemic drugs
CPT/HCPCS: 93458; 99152; C1769 ×2; C1894; J2250; J2001; J3010; J1644; Q9967

== ENCOUNTER → 2023-05-04 | Outpatient (CLI) | payer MEDICARE ==
--- NOTE | 2023-05-08 12:45 | MM ---
Reason for Exam: Screening (asymptomatic). Last mammogram was performed 1 year(s) and 1 month(s) ago. Patient History: Menarche at age 14. First Full-Term at age 21. Hysterectomy at age 42. Postmenopausal. Estrogen for 4 years from age 46 until age 50. Hormonal Contraceptives for 2 years from age 22 until age 24. 11/16/2017, Benign Core Biopsy on the right side. Risk Values: Carla 5 year model risk: 1.4%. NCI Lifetime model risk: 2.2%. Prior Study Comparison: 12/23/2019 Bilateral Screening Mammogram, [facility]. 03/03/2021 Bilateral Screening Mammogram, [facility]. 04/15/2022 Bilateral MG 3D screening mammo w/cad, [facility]. Tissue Density: There are scattered fibroglandular densities. Findings: Analyzed By CAD. Pattern appears symmetrical and stable. No significant interval change is evident. There are scattered benign-appearing punctate calcifications bilaterally. A core marker is within the right breast. No suspicious groups of microcalcifications, spiculated or lobular masses, architectural distortion or other secondary signs of malignancy are mammographically apparent. Overall Assessment: Benign, BI-RAD 2 Management: Screening Mammogram of both breasts in 1 year. A negative mammogram report should not preclude additional follow up of suspicious palpable abnormalities. Patient should continue monthly self breast exam. A clinical breast exam by your physician is recommended on an annual basis and results should be correlated with mammographic findings. Electronically signed and approved by: Yahir Ca D.O. Radiologis
== END | disposition home or self-care (01) ==
LOC: RADMAMWWP 15:52
PROVIDERS: ATTEND Family Medicine
DX: Z12.31 Encounter for screening mammogram for malignant neoplasm of breast (principal); Z78.0 Asymptomatic menopausal state
CPT/HCPCS: 77063; 77067

== ENCOUNTER → 2023-10-13 | Outpatient (CLI) | payer MEDICARE ==
--- NOTE | 2023-10-15 17:25 | US ---
EXAMINATION TYPE: US abdomen complete DATE OF EXAM: 10/13/2023 COMPARISON: NONE CLINICAL INDICATION: Female, 82 years old with history of R74.8 ELEVATED LIVER ENZYMES; LFTs TECHNIQUE: Multiple sonographic images of the abdomen are obtained. FINDINGS: EXAM MEASUREMENTS: Liver Length: 17.2 cm Gallbladder Wall: 0.2 cm CBD: 0.3 cm Spleen: 10.1 cm Right Kidney: 9.4x3.6x4.6 cm Left Kidney: 10.1x3.6x5.9 cm RAILROAD WHEELS AND AXLES INSPECTOR NOTES: Pancreas: Tail obscured by overlying bowel gas Liver: Enlarged, Increased attenuation, decreased visualization of vessels suggestive of fatty infil trate Gallbladder: several stones, largest measures 1.1cm Evidence for sonographic Green's sign: No CBD: wnl Spleen: wnl Right Kidney: cyst: 1.3x1.5x1.7cm Left Kidney: lower pole 1.9cm stone, radha-pelvic cysts vs minimal dilation Upper IVC: wnl Abd Aorta: wnl exam limited by bowel and body habitus The liver is heterogeneous with diffusely increased attenuation. This appearance limits evaluation fo r small intrahepatic masses. No gross evidence of mass. The intrahepatic portion of the IVC and prox imal abdominal aorta are within normal limits. Cholelithiasis is demonstrated. No wall thickening or surrounding fluid. Common bile duct is unremarkable. The visualized portions of the pancreas are matt ogenous. The spleen is unremarkable. Kidneys are symmetric and free of hydronephrosis. Nonobstructi ve left lower pole renal calculus. Right renal cysts. IMPRESSION: 1. Cholelithiasis without evidence for acute cholecystitis. 2. Nonobstructive left renal calculi. 3. Hepatic steatosis.
== END | disposition home or self-care (01) ==
LOC: RADUSWWP 09:47
PROVIDERS: ATTEND Family Medicine
DX: N20.0 Calculus of kidney (principal); K76.0 Fatty (change of) liver, not elsewhere classified; K80.20 Calculus of gallbladder without cholecystitis without obstruction; R74.8 Abnormal levels of other serum enzymes
CPT/HCPCS: 76700

== ENCOUNTER → 2024-07-03 | Outpatient (CLI) | payer MEDICARE ==
--- NOTE | 2024-07-03 17:17 | MM ---
Reason for Exam: Screening (asymptomatic). Last mammogram was performed 1 year(s) and 2 month(s) ago. Patient History: Menarche at age 14. First Full-Term at age 21. Hysterectomy at age 42. Postmenopausal. Estrogen for 4 years from age 46 until age 50. Hormonal Contraceptives for 2 years from age 22 until age 24. 11/16/2017, Benign Core Biopsy on the right side. Risk Values: Carla 5 year model risk: 1.4%. NCI Lifetime model risk: 2.0%. Prior Study Comparison: 03/03/2021 Bilateral Screening Mammogram, [facility]. 04/15/2022 Bilateral MG 3D screening mammo w/cad, [facility]. 05/04/2023 Bilateral MG 3D screening mammo w/cad, [facility]. Tissue Density: The breasts are heterogeneously dense, which may obscure small masses. Findings: Analyzed By CAD. Chronic bilateral subareolar densities. Chronic nodularity inferior right MLO view. Benign round calcification medial right breast middle depth. There is no suspicious group of microcalcifications or new suspicious mass in either breast. Overall Assessment: Benign, BI-RAD 2 Management: Screening Mammogram of both breasts in 1 year. Patient should continue monthly self-breast exams. A clinical breast exam by your physician is recommended on an annual basis. This exam should not preclude additional follow-up of suspicious palpable abnormalities. Note on Carla scores and lifetime risk: 1. A Carla score greater than 3% is considered moderate risk. If this is the case, consider specialist referral to assess eligibility for a risk reducing agent. 2. If overall lifetime risk for the development of breast cancer is 20% or higher, the patient may qualify for future screening with alternating mammogram and breast MRI. [facility], , 07/03/2024 5:14 PM. Electronically signed and approved by: Abel Araiza M.D. Radiologist
== END | disposition home or self-care (01) ==
LOC: RADMAMWWP 11:20
PROVIDERS: ATTEND Family Medicine
DX: Z12.31 Encounter for screening mammogram for malignant neoplasm of breast (principal); R92.333 Mammographic heterogeneous density, bilateral breasts; Z78.0 Asymptomatic menopausal state
CPT/HCPCS: 77063; 77067